=== PATIENT | female | born 1940 | race Caucasian/White ===

== ENCOUNTER → 2017-08-24 | Outpatient (CLI) | payer OTHER ==
[~2017-08-24] MED LIST: ALEVE220 MG PO; ASPIR 8181 MG PO; CITRACAL-VIT D1 EACH PO; CLARITIN10 MG PO; EYE OMEGA ADVA1 EACH PO; MAGNESIUM PO; OMEGA-31000 M1 PO; OSTEO BI-FLEX1 EAC1 PO; SIMVASTATIN40 MG PO; SPIRONOLACT/HCT1 TAB PO; TUMS PO; TYLENOL325 MG PO; VITAMIN B-1100 M2 PO; VITAMIN D1000 UNI1 PO
== END ==
LOC: M.RAD 08:37
DX: N91.2 Amenorrhea, unspecified (principal); Z78.0 Asymptomatic menopausal state; Z91.89 Other specified personal risk factors, not elsewhere classified

== ENCOUNTER → 2017-12-28 | Outpatient (CLI) | payer OTHER | LOC: M.MRI 07:29 | DX: S83.242A Other tear of medial meniscus, current injury, left knee, initial encounter (principal); M22.42 Chondromalacia patellae, left knee; M25.562 Pain in left knee; X58.XXXA Exposure to other specified factors, initial encounter; Y93.89 Activity, other specified; Y92.89 Other specified places as the place of occurrence of the external cause; Y99.8 Other external cause status ==

== ENCOUNTER → 2018-03-11 | Outpatient (CLI) | payer OTHER | LOC: M.RAD 08:57 | DX: Z12.31 Encounter for screening mammogram for malignant neoplasm of breast (principal) ==

== ENCOUNTER → 2019-09-07 | Outpatient (CLI) | payer OTHER | LOC: M.RAD 08-29 09:48 | PROVIDERS: ATTEND Family Medicine | DX: Z12.31 Encounter for screening mammogram for malignant neoplasm of breast (principal); M85.88 Other specified disorders of bone density and structure, other site ==

== ENCOUNTER → 2020-09-07 | Outpatient (CLI) | payer OTHER | LOC: M.RAD 08:42 | PROVIDERS: ATTEND Family Medicine | DX: Z12.31 Encounter for screening mammogram for malignant neoplasm of breast (principal) ==

== ENCOUNTER → 2020-09-28 | Outpatient (CLI) | payer OTHER ==
--- NOTE | 2020-09-28 16:56 | CARDNUC ---
[place] [address] CARDIAC NUCLEAR IMAGING REPORT Name: LISBETH LINARES Room: [facility]#: [id number] Admission: 09/28/20 Attend Phys: Missy Escobedo Discharge: Date of : 38 Date of Service: 09/28/20 1656 Report #: [id number] THIS REPORT FOR: cc: Lucia Bridges Maggie M. DO Liston, Michael J. MD [facility] ~ APPROVED REPORT Imaging Protocol: Stress Tc-99m/Rest Tc-99m 1 day Study performed: 09/28/2020 12:45:00 Indication: Chest pain, Dyspnea Patient Location: Out-Patient Stress Tech: Emelia Avery Stress Nurse: Anastasiia Aquino RN Ht: 5 ft 3 in Wt: 123 lbs BSA: 1.57 m2 BMI: 21.78 Medical History Medical History: Diabetic Noninsulin, HTN, Hyperlipidemia Medications: asa-81, simvastatin Allergies: metformin Cardiac Risk Factors: Age, Diabetes (non-insulin), FHX of CAD, HTN, Hyperlipidemia Exercise History: Indeterminate Resting Data Rest SPECT myocardial perfusion imaging was performed in supine position 30 minutes following the intravenous injection of 10.0 mCi of Tc-99m Sestamibi. Time of rest injection: 1310 The images were gated to evaluate regional wall motion and calculate left ventricular ejection fraction. Administration Route: IV Administration Site: Right AC Pharmacologic Stress Pharmacologic stress test was performed by injecting Regadenoson 0.4 mg IV push over 10-15 seconds immediately followed by the intravenous injection of 30.2 mCi of Tc-99m Sestamibi. Time of stress injection: 1440 Administration Route: [place] [address] CARDIAC NUCLEAR IMAGING REPORT Name: LISBETH LINARES Room: [facility]#: [id number] Admission: 09/28/20 Attend Phys: Missy Escobedo Discharge: Date of : 38 Date of Service: 09/28/20 1656 Report #: [id number] Administration Site: Right AC Heart Rate at time of stress injection: 128 bpm. Gated Stress SPECT was performed 45 minutes after stress injection. Prone imaging was performed. Stress Test Details Stress Test: Pharmacologic stress testing performed using 0.4 mg of regadenoson per 5 mL given IV over 10 seconds. Reason for pharmacologic stress test: physical limitation. 60 mg caffeine given for nausea. HR Max Heart Rate (APMHR): 139 bpm Resting HR: 70 bpm Target HR (85% APMHR): 118 bpm Max HR Achieved: 132 bpm % of APMHR: 94 Recovery HR: 94 bpm BP Resting BP: 148/79 mmHg Max BP: 178/85 mmHg Recovery BP: 170/81 mmHg ECG Resting ECG: Sinus Rhythm Stress ECG: Sinus Tachycardia ST Change: None Arrhythmia: None Recovery ECG: Sinus Rhythm Recovery ST Change: None Recovery Arrhythmia: None Clinical Reason for Termination: Completed protocol The patient tolerated Lexiscan infusion without significant cardiac symptoms. She had mild nausea relieved with caffeine. Nurse Comments pt attemted to doing walking [place] but states that her legs became too weak after injection of lexiscan. Pt was assisted to sit after receiving her dose of isotope and then became very nauseated. was given 60 mg caffeine ivp after the 4 min time limit was up and had totally resolution of symproms Stress ECG Conclusion The baseline twelve-lead EKG shows sinus rhythm without significant ST segment abnormality. EKGs obtained during and post Lexiscan infusion show sinus rhythm and sinus tachycardia [place] [address] CARDIAC NUCLEAR IMAGING REPORT Name: LISBETH LINARES Room: [facility]#: [id number] Admission: 09/28/20 Attend Phys: Missy Escobedo Discharge: Date of : 38 Date of Service: 09/28/20 1656 Report #: [id number] segment changes when compared to baseline. There were no stress-induced arrhythmias. Study Quality Study: Good Artifact: No artifact Study Data At rest, the left ventricular ejection fraction was 71%.. Post stress, the left ventricular ejection was 75%.. TID = 0.96. Perfusion Perfusion images obtained at rest and post Lexiscan stress show uniform uptake of the radioisotope throughout the myocardium. There were no defects to suggest infarct or ischemia. Wall Motion Normal left ventricular wall motion. Nuclear Conclusion ECG Findings: negative for ischemia Clinical Findings: negative for ischemia Nuclear Findings: negative for ischemia Exercise Capacity: not assessed Left Ventricular Function: normal Risk Study: low Perfusion images show no defect to suggest infarct or ischemia. Left ventricular systolic function appears normal on gated studies. This is a low risk study. <Conclusion> The baseline twelve-lead EKG shows sinus rhythm without significant ST segment abnormality. EKGs obtained during and post Lexiscan infusion show sinus rhythm and sinus tachycardia with no significant ST segment changes when compared to baseline. There were no stress-induced arrhythmias. <ELECTRONICALLY SIGNED> By: Raúl Grey MD, FACC 09/28/20 1656 [id number] Raúl Grey MD, FACC /INF
== END ==
LOC: M.NUC 09-12 09:10
PROVIDERS: ATTEND Internal Medicine
DX: R07.89 Other chest pain (principal); R06.00 Dyspnea, unspecified; E78.2 Mixed hyperlipidemia; E11.9 Type 2 diabetes mellitus without complications; I10 Essential (primary) hypertension